=== PATIENT | male | born 1965 | race Caucasian/White ===

== ENCOUNTER → 2018-05-02 | Outpatient (CLI) | payer OTHER ==
[~2018-05-02] MED LIST: RT-ALBUTEROL SULF 2.5 MG/3 ML PRE-MIX VIAL INH ONE
== END ==
LOC: RT 13:06
PROVIDERS: ATTEND Radiology Therapeutic Radiology
DX: Z02.71 Encounter for disability determination (principal)
CPT/HCPCS: 94060

== ENCOUNTER → 2018-06-02 | Outpatient (CLI) | payer OTHER ==
--- NOTE | 2018-06-02 12:50 | Diagnostic Imaging Report ---
EXAM: Lumbar spine INDICATION: Back pain TECHNIQUE: AP, lateral and spot lateral views were obtained. COMPARISON: There are no prior studies available for comparison. FINDINGS: The lateral view does show degenerative disc and bony disease at L4-5 and L5-S1. Specifically, there is narrowing of the disc spaces at both these levels as well as vacuum disc formation at L5-S1. There is also slight retrolisthesis of L5 with respect to S1 and of L4 with respect to L5. The other intervertebral spaces are fairly well-maintained. There is no fracture or acute bony abnormality evident. There is no sign of a paraspinal mass. There is mild symmetrical sclerosis of the sacroiliac joints. IMPRESSION: 1. There is no evidence for an acute bony abnormality. 2. There is degenerative disc and bony disease at L4-5 and L5-S1. 3. If clinical concern regarding an underlying abnormality persists, MRI be would recommended for further study. Dictated by: Dictated on workstation # [id number]
== END ==
LOC: RAD 11:37
PROVIDERS: ATTEND Radiology Therapeutic Radiology
DX: Z02.71 Encounter for disability determination (principal); M51.37 Other intervertebral disc degeneration, lumbosacral region; M89.9 Disorder of bone, unspecified
CPT/HCPCS: 72100